=== PATIENT | male | born 1980 | race African-American/Black ===

== ENCOUNTER 2024-09-23 12:35 | Emergency (ER) | payer MEDICAID ==
[~2024-09-23] VITALS: Ht 188 cm; Wt 75.7 kg
[2024-09-23 12:54] VITALS: BP 129/86; TEMP 97.9
[2024-09-23] MEDS ORDERED: PRED50TA PO (14:12)
[2024-09-23] MEDS: diphenhydrAMINE HCL 50 MG CAPSULE PO ONE (14:30)
[2024-09-23] MEDS: predniSONE 10 MG TABLET PO ONE (14:30)
[2024-09-23] MEDS: FAMOTIDINE (20 MG) 20 MG TABLET PO ONE (14:30)
[2024-09-23] MEDS ORDERED: diphenhydrAMINE HCL 50 MG CAPSULE ONE (15:20)
[2024-09-23] MEDS ORDERED: predniSONE 20 MG TABLET ONE (15:20)
[2024-09-23] MEDS ORDERED: FAMOTIDINE (20 MG) 20 MG TABLET ONE (15:21)
[2024-09-23 15:39] VITALS: O2SAT 99
== END 2024-09-23 15:40 | disposition home or self-care (01) ==
LOC: ER 13:09
DX: T78.40XA Allergy, unspecified, initial encounter (principal); Z79.52 Long term (current) use of systemic steroids; X58.XXXA Exposure to other specified factors, initial encounter
CPT/HCPCS: 99284; Q0163; J7512 ×2